=== PATIENT | female | born 1980 | race Caucasian/White ===

== ENCOUNTER 2018-07-19 16:13 | Emergency (ER) | payer SELFPAY ==
[~2018-07-19] VITALS: Ht 154.9 cm; Wt 59.0 kg
[2018-07-19 16:30] VITALS: BP 126/76
--- NOTE | 2018-07-19 18:34 | Emergency Room Report ---
History of Present Illness General Chief Complaint: General Complaint Source: Patient, Family Member, Significant Other Present Illness HPI this is a 38--year-old female who ingested marijuana. And complains of dizziness with decreased level of consciousness. Brought in by her . No other ccomplaints. No trauma. Allergies: Coded Allergies: No Known Allergies (Unverified , 07/19/18) Patient History Past Medical History: none Past Surgical History: none Pertinent Family History: none Now: No Nursing Documentation-PMH Past Medical History: No Stated History Review of Systems All Other Systems: negative except mentioned in HPI Physical Exam Vital Signs Date Time Temp Pulse Resp B/P (MAP) Pulse Ox O2 Delivery O2 Flow Rate FiO2 07/19/18 16:22 97.3 120 25 130/77 100 Room Air General Appearance: well appearing, no apparent distress Head: normocephalic, atraumatic ENT: hearing grossly normal, normal voice Neck: full range of motion, supple Respiratory: no respiratory distress, speaking full sentences Gastrointestinal: normal inspection, normal bowel sounds Neurologic: alert, other - Slow to respond but does respond to my questions., grossly normal Skin: normal inspection, normal color, no rash Medical Decision Making Diagnostic Impression: Primary Impression: Marijuana intoxication ER Course patient is ambulatory. without any neuro deficits. able to tolerate PO. will d/ c with sig other. Last Vital Signs Date Time Temp Pulse Resp B/P (MAP) Pulse Ox O2 Delivery O2 Flow Rate FiO2 07/19/18 16:30 97.6 114 22 126/76 98 Room Air Status: improved Disposition: HOME, SELF-CARE Condition: Stable Referrals: NOT CHOSEN IPA/MD,REFERRING (PCP) Patient Instructions: Substance Use Disorder MELVINA PHELPS Jul 19, 2018 18:34
[2018-07-19 18:56] VITALS: BP 118/74
== END 2018-07-19 18:58 | disposition home or self-care (01) ==
LOC: EMR 17:00
DX: F12.929 Cannabis use, unspecified with intoxication, unspecified (principal); R42 Dizziness and giddiness; R41.82 Altered mental status, unspecified
CPT/HCPCS: 99282